=== PATIENT | male | born 1965 | race Caucasian/White ===

== ENCOUNTER 2017-11-24 13:37 | Outpatient (CLI) | payer BC | END 2017-11-24 13:38 | disposition home or self-care (01) | LOC: BICRAD 13:37 | PROVIDERS: ATTEND Chiropractor | DX: G89.18 Other acute postprocedural pain (principal); M16.12 Unilateral primary osteoarthritis, left hip; Z96.651 Presence of right artificial knee joint | CPT/HCPCS: 72170 ==

== ENCOUNTER 2017-12-30 11:41 | Outpatient (CLI) | payer BC ==
--- NOTE | 2017-12-30 12:29 | RAD ---
THREE VIEW LEFT FOOT SERIES: Indication: Left foot pain. FINDINGS: There is a fibular great toe sesamoid. Lisfranc joint is intact. There is extrinsic artifact limiting visualization. No discrete fracture is evident. IMPRESSION: No acute fracture or dislocation identified in the left foot. POS: [facility]
== END 2017-12-30 11:42 | disposition home or self-care (01) ==
LOC: SCSRAD 11:41
PROVIDERS: ATTEND Chiropractor
DX: M79.672 Pain in left foot (principal)

== ENCOUNTER 2018-02-22 12:43 | Outpatient (CLI) | payer BC ==
--- NOTE | 2018-02-22 14:17 | MRI ---
MRI LEFT FOOT: 02/22/2018 PROVIDED CLINICAL HISTORY: Forefoot pain. FINDINGS: The dorsal extensor and plantar flexor tendons demonstrate an intact MRI appearance. The MTP joint capsules appear intact. The courses of the regional major neurovascular structures mandie ear unremarkable. The fibular great toe sesamoid is comprised of two fragments. There is mild signal alteration on flu id sensitive sequences involving the fibular great toe sesamoid. The tibial great toe sesamoid appea rs normal. There is greater than physiologic fluid present within the intermetatarsal bursa, between the first a nd second digits. No focal concerning regional marrow or muscular signal abnormality is apparent. No regional joint ef fusion is seen. There is greater than physiologic fluid present within the third-fourth intermetatar danny bursa. IMPRESSION: 1. The fibular great toe sesamoid is comprised of two fragments and demonstrates mild signal alterat ion. 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 Mild sesamoiditis is suspected. 2. First-second and third-fourth intermetatarsal bursitis. POS: [facility]
== END 2018-02-22 12:44 | disposition home or self-care (01) ==
LOC: MRI 12:43
PROVIDERS: ATTEND Podiatrist
DX: D49.2 Neoplasm of unspecified behavior of bone, soft tissue, and skin (principal); M77.52 Other enthesopathy of left foot and ankle

== ENCOUNTER 2019-04-10 13:48 | Outpatient (CLI) | payer BC ==
--- NOTE | 2019-04-10 15:07 | ULT ---
ABDOMEN ULTRASOUND: HISTORY: Abdominal pain. FINDINGS: The liver, spleen, gallbladder, kidneys and visualized portions of the pancreas, aorta and IVC appear normal. No free fluid is seen. The common duct measures 4 mm in diameter. IMPRESSION: No significant abnormalities are seen. POS: [facility]
== END 2019-04-10 13:49 | disposition home or self-care (01) ==
LOC: ULT 13:48
PROVIDERS: ATTEND Internal Medicine
DX: R10.9 Unspecified abdominal pain (principal)
CPT/HCPCS: 93975

== ENCOUNTER 2021-02-10 19:00 | Outpatient (CLI) | payer OTHER | END 2021-02-10 19:01 | disposition home or self-care (01) | LOC: SLEEPLAB 19:00 | PROVIDERS: ATTEND Internal Medicine | DX: G47.33 Obstructive sleep apnea (adult) (pediatric) (principal); G47.10 Hypersomnia, unspecified; R53.83 Other fatigue; K21.9 Gastro-esophageal reflux disease without esophagitis; F41.9 Anxiety disorder, unspecified; I10 Essential (primary) hypertension; R06.83 Snoring; G47.00 Insomnia, unspecified; E66.9 Obesity, unspecified; Z68.33 Body mass index [BMI] 33.0-33.9, adult | CPT/HCPCS: 95811 ==

== ENCOUNTER 2023-04-22 11:26 | Outpatient (CLI) | payer OTHER ==
[2023-04-22 12:43] LABS: #Eosinphils 0.1 10x3/uL (0.0-0.5); #Monocytes 0.6 10x3/uL (0.0-1.1); #Neutrophils 2.7 10x3/uL (1.5-8.4); %Basophils 0.7 % (0.0-2.0); %Eosinophils 1.2 % (0.0-6.0); %Lymphocytes 38.6 % (18.0-47.0); %Monocytes 10.8 % (0.0-10.0); %Neutrophils 48.2 % (40.0-75.0); Hematocrit 44.5 % (38.8-50.0); Hemoglobin 14.9 g/dL (13.5-17.5); Mean Corpuscular HGB CONC 33.5 g/dL (32.0-36.0); Mean Corpuscular Hemoglobin 30.3 pg (27.0-33.0); Mean Corpuscular Volume 90.6 fl (81.2-95.1); Mean Platelet Volume 8.7 fl (7.4-10.4); Platelet Count 233 10x3/uL (150-450); Red Blood Cell (RBC) Count 4.91 10x6/uL (4.32-5.72); White Blood Cell (WBC) Count 5.7 10x3/uL (3.5-10.5)
[2023-04-22 13:03] LABS: ALT (SGPT) 41 U/L (8-55); AST (SGOT) 22 U/L (5-34); Albumin 4.5 g/dL (3.5-5.0); Alkaline Phosphatase 54 U/L (40-110); Anion Gap 13 mmol/L (10-20); BUN (Urea Nitrogen) 14 mg/dL (8.4-25.7); Bilirubin, Total 0.9 mg/dL (0.2-1.2); Calc. Creatinine Clearance 0 mL/min (70-130); Calcium 9.3 mg/dL (7.8-10.44); Carbon Dioxide 28 mmol/L (22-29); Chloride 106 mmol/L (98-107); Estimated GFR 101; Globulin 2.5 g/dL (2.4-3.5); Glucose 121 mg/dL (70-105); Potassium 4.3 mmol/L (3.5-5.1); Sodium 143 mmol/L (136-145)
== END 2023-04-22 11:27 | disposition home or self-care (01) ==
LOC: LABBT 11:26
PROVIDERS: ATTEND Surgery
DX: Z01.818 Encounter for other preprocedural examination (principal)
CPT/HCPCS: 80053; 85025; 93005; 93010

== ENCOUNTER 2023-04-25 06:40 | Day surgery (SDC) | payer OTHER ==
[2023-04-21 16:11] VITALS: BMI 31.6
[2023-04-25] MEDS ORDERED: Bupivacaine 0.25% HCL 30 ML VIAL ONE (08:41)
[2023-04-25] MEDS ORDERED: EPINEPHrine 1 MG/ML VIAL ONE (08:41)
[2023-04-25] MEDS ORDERED: Ondansetron PF 4 MG/2 ML Vial ONE ×2 (08:50→09:14)
[2023-04-25] MEDS ORDERED: fentaNYL 50 mcg/mL 1 mL Vial ONE ×2 (08:50→09:56)
[2023-04-25] MEDS ORDERED: Sodium Chloride 0.9% 100 ML ONE (09:02)
[2023-04-25] MEDS ORDERED: CEFAZOLIN 2 GM VIAL ONE (09:02)
[2023-04-25] MEDS ORDERED: Dexamethasone 20 MG/5 ML VIAL ONE (09:14)
[2023-04-25] MEDS ORDERED: PROPOFOL 200 MG/20 ML VIAL ONE (09:14)
[2023-04-25] MEDS ORDERED: Lidocaine 1% PF 5 ML VIAL ONE (09:14)
[2023-04-25] MEDS ORDERED: Rocuronium Bromide 10 MG/ML (10ML VIAL) ONE (09:14)
[2023-04-25] MEDS ORDERED: SUGAMMADEX SODIUM 200 MG/2 ML VIAL ONE (09:41)
[2023-04-25] MEDS ORDERED: HYDROcodone/Acetaminophen 5/325 mg Tablet ONE (10:44)
== END 2023-04-25 11:55 | disposition home or self-care (01) ==
LOC: SDC 06:40
PROVIDERS: ATTEND Surgery
PROC: 0WUF0JZ Supplement Abdominal Wall with Synthetic Substitute, Open Approach (ICD-10-PCS; principal; 2023-04-25)
DX: K42.9 Umbilical hernia without obstruction or gangrene (principal); I10 Essential (primary) hypertension; E78.00 Pure hypercholesterolemia, unspecified; Z96.641 Presence of right artificial hip joint; Z98.890 Other specified postprocedural states; Z79.899 Other long term (current) drug therapy; Z87.891 Personal history of nicotine dependence
CPT/HCPCS: C1889; J0171; J1100; J2405; J2704; J3010; J3490; S0020

== ENCOUNTER 2025-05-17 10:27 | Outpatient (CLI) | payer OTHER ==
[2025-05-17 11:20] LABS: #Basophils Less than 0.03 10x3/uL (0.0-0.2); #Eosinophils 0.11 10x3/uL (0.0-0.7); #Monocytes 0.56 10x3/uL (0.11-0.59); #Neutrophils 2.28 10x3/uL (1.40-6.50); %Basophils 0.4 % (0.0-1.0); %Eosinophils 2.1 % (0.0-10.0); %Lymphocytes 41.7 % (21.0-51.0); %Monocytes 10.9 % (0.0-10.0); %Neutrophils 44.5 % (42.0-75.0); Hematocrit 45.9 % (42.0-52.0); Hemoglobin 15.6 g/dL (14.0-18.0); Mean Corpuscular Hemoglobin 30.3 pg (27.0-31.0); Mean Corpuscular Volume 89.1 fL (78.0-98.0); Platelet Count 199 10x3/uL (130-400); Red Blood Cell (RBC) Count 5.15 mill/uL (4.70-6.10); White Blood Cell (WBC) Count 5.13 10x3/uL (4.8-10.8)
[2025-05-17 11:35] LABS: ALT (SGPT) 38 U/L (Less than 45); AST (SGOT) 29 U/L (11-34); Albumin 4.5 g/dL (3.1-4.5); Alkaline Phosphatase 37 U/L (40-110); Anion Gap 10 mmol/L (10-20); BUN (Urea Nitrogen) 15 mg/dL (8.4-25.7); Bilirubin, Total 1.1 mg/dL (0.3-1.2); Calc. Creatinine Clearance 0 mL/min (70-130); Calcium 9.2 mg/dL (7.8-10.44); Carbon Dioxide 30 mmol/L (23-31); Chloride 106 mmol/L (98-107); Globulin 2.2 g/dL (2.4-3.5); Glucose 120 mg/dL (80-115); Potassium 4.3 mmol/L (3.5-5.1); Sodium 142 mmol/L (136-145)
== END 2025-05-17 10:28 | disposition home or self-care (01) ==
LOC: LABBT 10:27
PROVIDERS: ATTEND Surgery
DX: Z01.818 Encounter for other preprocedural examination (principal); M79.5 Residual foreign body in soft tissue
CPT/HCPCS: 80053; 85025; 93005; 93010

== ENCOUNTER 2025-05-22 07:12 | Day surgery (SDC) | payer OTHER ==
[2025-05-17 10:45] VITALS: BMI 29.7
[2025-05-22] MEDS ORDERED: Bupivacaine 0.25% HCL 30 ML VIAL ONE (10:08)
[2025-05-22] MEDS ORDERED: Lidocaine 1% PF 5 ML VIAL ONE (12:21)
[2025-05-22] MEDS ORDERED: Ondansetron PF 4 MG/2 ML Vial ONE (12:36)
[2025-05-22] MEDS ORDERED: PROPOFOL 200 MG/20 ML VIAL ONE (12:36)
[2025-05-22] MEDS ORDERED: HYDROcodone/Acetaminophen 5/325 mg Tablet ONE (14:43)
== END 2025-05-22 15:10 | disposition home or self-care (01) ==
LOC: SDC 07:12
PROVIDERS: ATTEND Surgery
PROC: 0JC60ZZ Extirpation of Matter from Chest Subcutaneous Tissue and Fascia, Open Approach (ICD-10-PCS; principal; 2025-05-22)
DX: S21.141A Puncture wound with foreign body of right front wall of thorax without penetration into thoracic cavity, initial encounter (principal); I10 Essential (primary) hypertension; E11.9 Type 2 diabetes mellitus without complications; E78.00 Pure hypercholesterolemia, unspecified; F41.9 Anxiety disorder, unspecified; Z87.891 Personal history of nicotine dependence; Z96.651 Presence of right artificial knee joint; Z98.890 Other specified postprocedural states; Z79.82 Long term (current) use of aspirin; Z79.84 Long term (current) use of oral hypoglycemic drugs; Z79.899 Other long term (current) drug therapy; W22.8XXA Striking against or struck by other objects, initial encounter
CPT/HCPCS: 71045; 88304; J0169; J0665; J1100; J2405; J2704; J3010